=== PATIENT | male | born 1955 | race African-American/Black ===

== ENCOUNTER 2020-03-23 12:13 | Emergency (ER) | payer MEDICARE ==
[2020-03-23] MEDS ORDERED: BUPIVACAINE 0.5% PF 10 ML VIAL ONE (14:19)
[2020-03-23] MEDS ORDERED: TETANUS & DIPHTHERIA TOX,ADULT 0.5 ML VIAL ONE (14:19)
--- NOTE | 2020-03-23 15:05 | EDPHYS ---
Physician Documentation [facility] Name: Presley Shetty Age: 64 yrs Sex: Male : 1955 Arrival Date: 03/23/2020 Time: 12:15 Bed 19 Private MD: ED Physician Darian Clarke HPI: 03/23 14:06 This 64 yrs old Black Male presents to ER via Ambulatory with complaints of Finger jmm Injury. 14:06 The patient or guardian reports injury. Onset: The symptoms/episode began/occurred jmm acutely, just prior to arrival. Modifying factors: The symptoms are alleviated by nothing, the symptoms are aggravated by nothing. Associated signs and symptoms: The patient has no apparent associated signs or symptoms. The patient has not experienced similar symptoms in the past. This is a 64 year old male with a history of htn, DM, C AD, COPD that presents to the ED after accidently catching a fish hook with his left 3rd finger. . Historical: - Allergies: 12:25 No Known Allergies; ca1 - PMHx: 12:25 Hypertension; Diabetes - NIDDM; CAD; COPD; ca1 - PSHx: 12:25 CABG; ca1 - Immunization history:: Adult Immunizations up to date, Last tetanus immunization: unknown. - Social history:: Smoking status: Patient denies any tobacco usage or history of. ROS: 14:06 Constitutional: Negative for fever, chills, and weight loss, Cardiovascular: Negative jmm for chest pain, palpitations, and edema, Respiratory: Negative for shortness of breath, cough, wheezing, and pleuritic chest pain. 14:06 MS/extremity: Positive for injury or acute deformity. 14:06 All other systems are negative. Exam: 14:06 Constitutional: This is a well developed, well nourished patient who is awake, alert, jmm and in no acute distress. Head/Face: atraumatic. Eyes: EOMI, no conjunctival erythema appreciated ENT: Moist Mucus Membranes Neck: Trachea midline, Supple Chest/axilla: Normal chest wall appearance and motion. Cardiovascular: Regular rate and rhythm. No edema appreciated Respiratory: Normal respirations, no respiratory distress appreciated Abdomen/GI: Non distended, soft Back: Normal ROM Skin: General appearance color normal 14:06 Neuro: Awake and alert, normal gait Psych: Behavior is normal, Mood is normal, Patient is cooperative and pleasant 14:06 Musculoskeletal/extremity: fish hook embedded into the left 3rd distal phalanx. Vital Signs: 12:23 BP 129 / 78; Pulse 62; Resp 15 S; Temp 98.5(O); Pulse Ox 97% on R/A; Weight 108.86 kg ca1 (R); Height 5 ft. 10 in. (177.80 cm) (R); 14:15 BP 128 / 86; Pulse 59; Resp 17; Pulse Ox 95% ; jl7 12:23 Body Mass Index 34.44 (108.86 kg, 177.80 cm) ca1 Procedures: 15:02 Performed Fish Hook Removal. The left thrid phalanx anesthetized with 3 ml of 0.5% [facility] marcaine digital block. Fish hook was pushed through with hemostats. patient tolerated the procedure well. . MDM: 14:06 Patient medically screened. [facility] 15:02 Data reviewed: vital signs, nurses notes. Counseling: I had a detailed discussion with [facility] the patient and/or guardian regarding: the historical points, exam findings, and any diagnostic results supporting the discharge/admit diagnosis, the need for outpatient follow up, to return to the emergency department if symptoms worsen or persist or if there are any questions or concerns that arise at home. ED course: Patient given wound infection return precautions. Patient understood and agrees with the plan of care. . Administered Medications: 14:14 Drug: Tetanus-Diphtheria Toxoid Adult 0.5 ml {Grainer Machine: [employer]. Exp: jl7 09/26/2022. Lot #: [id number]. } Route: IM; Site: right deltoid; 15:17 Follow up: Response: No adverse reaction jl 14:35 Drug: Marcaine (0.5 %) 10 ml Volume: 10 ml; Route: Infiltration; jl7 15:17 Follow up: Response: No adverse reaction 7 15:10 Drug: Doxycycline 100 mg Route: PO; jl7 15:17 Follow up: Response: Medication administered at discharge. jl7 Disposition: 17:31 Co-signature as Attending Physician, Darian Clarke MD. rn Disposition: 03/23/20 15:04 Discharged to Home. Impression: Fish Hook Foreign Body to the Finger. - Condition is Stable. - Discharge Instructions: Marine Life Injury. - Prescriptions for Tylenol- Codeine #3 300-30 mg Oral Tablet - take 1 tablet by ORAL route every 6 hours As needed; 12 tablet. Doxycycline Hyclate 100 mg Oral Tablet - take 1 tablet by ORAL route every 12 hours; 20 tablet. - Medication Reconciliation Form, Thank You Letter, Antibiotic Education, Prescription Opioid Use form. - Follow up: Private Physician; When: 2 - 3 days; Reason: Recheck today's complaints, Continuance of care, Re-evaluation by your physician. Signatures: Arnie Fernandes PA PA jmm Nieto, Roman, MD MD rn John Paul Al RN RN jl7 Acob, Makayla RN RN ca1 Corrections: (The following items were deleted from the chart) 15:18 15:04 03/23/2020 15:04 Discharged to Home. Impression: Fish Hook Foreign Body to the jl7 Finger. Condition is Stable. Forms are Medication Reconciliation Form, Thank You Letter, Antibiotic Education, Prescription Opioid Use. Follow up: Private Physician; When: 2 - 3 days; Reason: Recheck today's complaints, Continuance of care, Re-evaluation by your physician. marlin
--- NOTE | 2020-03-23 15:05 | ER ---
Nurse's Notes [facility] Name: Presley Shetty Age: 64 yrs Sex: Male : 1955 Arrival Date: 03/23/2020 Time: 12:15 Bed 19 Private MD: Diagnosis: Fish Hook Foreign Body to the Finger Presentation: 03/23 12:23 Chief complaint: Patient states: fish hook on 3rd digit of L hand. Coronavirus screen: ca1 Client denies travel out of the [place] in the last 14 days. At this time, the client does not indicate any symptoms associated with coronavirus-19. Ebola Screen: Patient negative for fever greater than or equal to 101.5 degrees Fahrenheit, and additional compatible Ebola Virus Disease symptoms Patient denies exposure to infectious person. Patient denies travel to an Ebola-affected area in the 21 days before illness onset. No symptoms or risks identified at this time. Initial Sepsis Screen: Does the patient meet any 2 criteria? No. Patient's initial sepsis screen is negative. Does the patient have a suspected source of infection? No. Patient's initial sepsis screen is negative. Risk Assessment: Do you want to hurt yourself or someone else? Patient reports no desire to harm self or others. Onset of symptoms was March 23, 2020. 12:23 Method Of Arrival: Ambulatory ca1 12:23 Acuity: ASIA 5 ca1 Triage Assessment: 12:25 General: Appears in no apparent distress. comfortable, Behavior is calm, cooperative, ca1 appropriate for age. Historical: - Allergies: 12:25 No Known Allergies; ca1 - PMHx: 12:25 Hypertension; Diabetes - NIDDM; CAD; COPD; ca1 - PSHx: 12:25 CABG; ca1 - Immunization history:: Adult Immunizations up to date, Last tetanus immunization: unknown. - Social history:: Smoking status: Patient denies any tobacco usage or history of. Screenin:58 Abuse screen: Denies threats or abuse. Denies injuries from another. Nutritional jl7 screening: No deficits noted. Tuberculosis screening: No symptoms or risk factors identified. Fall Risk None identified. Assessment: 13:58 General: Appears in no apparent distress. uncomfortable, Behavior is calm, cooperative, jl7 appropriate for age. Pain: Complains of pain in palmar aspect of distal phalanx of left ring finger. Neuro: Level of Consciousness is awake, alert, obeys commands, Oriented to person, place, time, situation. Cardiovascular: Patient's skin is warm and dry. Respiratory: Airway is patent Respiratory effort is even, unlabored, Respiratory pattern is regular, symmetrical. Derm: Skin is pink, warm \T\ dry. Musculoskeletal: Range of motion: intact in all extremities. Vital Signs: 12:23 BP 129 / 78; Pulse 62; Resp 15 S; Temp 98.5(O); Pulse Ox 97% on R/A; Weight 108.86 kg ca1 (R); Height 5 ft. 10 in. (177.80 cm) (R); 14:15 BP 128 / 86; Pulse 59; Resp 17; Pulse Ox 95% ; jl7 12:23 Body Mass Index 34.44 (108.86 kg, 177.80 cm) ca1 ED Course: 12:15 Patient arrived in ED. ag5 12:24 Triage completed. ca1 12:25 Arm band placed on right wrist. ca1 13:49 Arnie Fernandes PA is PHCP. [facility] 13:49 Darian Calrke MD is Attending Physician. [facility] 13:54 John Paul Al RN is Primary Nurse. jl7 13:58 Patient has correct armband on for positive identification. Placed in gown. Bed in low jl7 position. Call light in reach. Side rails up X 1. Pulse ox on. NIBP on. 14:35 Assist provider with foreign body removal of a fish hook from left 3rd digit Set up for jl7 procedure. Performed by Arnie CHENG Patient tolerated well. 15:18 Patient did not have IV access during this emergency room visit. jl7 Administered Medications: 14:14 Drug: Tetanus-Diphtheria Toxoid Adult 0.5 ml {Card Folder: [employer]. Exp: jl7 09/26/2022. Lot #: [id number]. } Route: IM; Site: right deltoid; 15:17 Follow up: Response: No adverse reaction jl7 14:35 Drug: Marcaine (0.5 %) 10 ml Volume: 10 ml; Route: Infiltration; jl7 15:17 Follow up: Response: No adverse reaction jl7 15:10 Drug: Doxycycline 100 mg Route: PO; jl7 15:17 Follow up: Response: Medication administered at discharge. jl7 Outcome: 15:04 Discharge ordered by MD. isaac 15:18 Discharged to home ambulatory. jlCorrie 15:18 Condition: stable 15:18 Discharge instructions given to patient, Instructed on discharge instructions, follow up and referral plans. medication usage, Demonstrated understanding of instructions, follow-up care, medications, Prescriptions given X 2. 15:18 Patient left the ED. jl7 Signatures: Arnie Fernandes PA PA jmm Leal, Jahala, RN RN jl7 Makayla Rutherford RN RN [facility] Renny Munguia [facility]
[2020-03-23] MEDS ORDERED: DOXYCYCLINE 100 MG CAP PO ONE (15:18)
[2020-03-23 15:22] VITALS: TEMP 98.5
[2020-03-23 15:24] VITALS: BP 128/86; O2SAT 95
== END 2020-03-23 15:18 | disposition home or self-care (01) ==
LOC: ER 12:13
DX: S61.243A Puncture wound with foreign body of left middle finger without damage to nail, initial encounter (principal); I10 Essential (primary) hypertension; Z23 Encounter for immunization; Z95.1 Presence of aortocoronary bypass graft
CPT/HCPCS: 90471; 90714; 99284

== ENCOUNTER 2023-07-03 07:21 | Day surgery (SDC) | payer OTHER ==
[2023-06-26 15:52] LABS: Absolute Lymphocytes (CBC) 1.7 K/uL (0.7-4.9); Hematocrit 41.5 % (39.6-49.0); Lymphocytes % 21.1 % (15.3-44.8); MCV 84.7 fL (80-100); MPV 8.3 fL (7.6-11.3); Platelets 267 thou/uL (152-406)
[2023-06-26 15:59] LABS: Protime INR 1.05
[2023-06-26 16:06] LABS: Potassium 4.3 mEq/L (3.5-5.1)
--- NOTE | 2023-06-28 16:54 | EKG ---
Test Date: 2023-06-26 Test Time: 16:34:23 Recruiting And Selection Consultant: SANGEETA MEASUREMENT RESULTS: Intervals: Rate: 71 WI: 180 QRSD: 88 QT: 398 QTc: 432 Garner: P: 76 WI: 180 QRS: 70 T: 89 INTERPRETIVE STATEMENTS: Normal sinus rhythm Possible Left atrial enlargement Nonspecific T wave abnormality Abnormal ECG Compared to ECG 08/15/2016 14:42:29 Sinus bradycardia no longer present Myocardial infarct finding no longer present Possible ischemia no longer present T-wave abnormality still present Electronically Signed On 06-28-23 16:50:41 WASHROOM OPERATOR by Davey Vidales
[2023-07-03] MEDS ORDERED: NA CHLORIDE 0.9% 1,000 ML ONE (07:54)
[2023-07-03] MEDS ORDERED: GLYCOPYRROLATE 0.2 MG/ML SYR ONE (08:33)
[2023-07-03] MEDS ORDERED: LIDOCAINE 1% MPF 30 ML VIAL ONE (08:33)
[2023-07-03] MEDS ORDERED: propofoL 200 MG/20 ML VIAL IV ONE (08:33)
[2023-07-03 10:12] VITALS: O2SAT 99
[2023-07-03 10:14] VITALS: BP 115/69; TEMP 97.7
== END 2023-07-03 09:32 | disposition home or self-care (01) ==
LOC: OR 07:21
PROVIDERS: ATTEND Surgery
PROC: 0DJD8ZZ Inspection of Lower Intestinal Tract, Via Natural or Artificial Opening Endoscopic (ICD-10-PCS; principal; 2023-07-03 08:30)
DX: K62.5 Hemorrhage of anus and rectum (principal); K59.09 Other constipation; K64.4 Residual hemorrhoidal skin tags; K64.8 Other hemorrhoids; Z91.199 Patient's noncompliance with other medical treatment and regimen due to unspecified reason
CPT/HCPCS: 93005; 85025; 80048; 36415; 85610; 82947; 85730; 45378; J2704; J2001; J7030

== ENCOUNTER 2023-07-17 06:17 | Day surgery (SDC) | payer OTHER ==
[2023-07-17] MEDS ORDERED: NA CHLORIDE 0.9% 1,000 ML ONE (06:52)
[2023-07-17 09:34] VITALS: TEMP 97.5; O2SAT 100
[2023-07-17 10:07] VITALS: BP 122/56
== END 2023-07-17 10:05 | disposition home or self-care (01) ==
LOC: OR 06:17
PROVIDERS: ATTEND Surgery
PROC: 0DBN8ZX Excision of Sigmoid Colon, Via Natural or Artificial Opening Endoscopic, Diagnostic (ICD-10-PCS; principal; 2023-07-17 08:30)
DX: Z12.11 Encounter for screening for malignant neoplasm of colon (principal); K63.5 Polyp of colon; K57.30 Diverticulosis of large intestine without perforation or abscess without bleeding; K64.8 Other hemorrhoids; K64.4 Residual hemorrhoidal skin tags; I10 Essential (primary) hypertension; I25.10 Atherosclerotic heart disease of native coronary artery without angina pectoris; G47.33 Obstructive sleep apnea (adult) (pediatric); J44.9 Chronic obstructive pulmonary disease, unspecified; E11.9 Type 2 diabetes mellitus without complications; E66.9 Obesity, unspecified; I25.2 Old myocardial infarction; M19.90 Unspecified osteoarthritis, unspecified site; K21.9 Gastro-esophageal reflux disease without esophagitis; F32.A Depression, unspecified; Z99.81 Dependence on supplemental oxygen; Z95.1 Presence of aortocoronary bypass graft; Z95.5 Presence of coronary angioplasty implant and graft; Z87.891 Personal history of nicotine dependence
CPT/HCPCS: 82947; 88305; J7030